=== PATIENT | male | born 1945 | race Caucasian/White ===

== ENCOUNTER → 2018-07-16 | Outpatient (CLI) | payer OTHER ==
[~2018-07-16] VITALS: Ht 170.2 cm; Wt 61.2 kg
[~2018-07-16] MED LIST: ACIPHEX 20 MG T20 MG PO; HYDROCODON-ACE1 EAC7 PO; IBUPROFEN 400400 M1 PO; NOHOMEMEDICATIONS
--- NOTE | ~2018-07-16 | PATH ---
[facility] [place] [address] [place] [address] PATHOLOGY RPT PROCEDURE Name: ADONAY PINA Room #: REG SHIV M.R.#: [id number] Admission: 07/16/18 Date of : 49 Discharge: Report #: [id number] Path Case #: [id number] [facility] Accession Number: [id number] . 01 Material submitted: . PART A: BX DUODENUM PART B: BX ANTRUM PART C: BX DISTAL ESOPHAGUS . 01 Clinical history: . Abd pain Hiatal hernia, mild esophagitis, gastritis A: Rule out celiac B: Rule out H. pylori C: Rule out Resendez's . 02 Diagnosis: A. Small bowel mucosa, duodenum, rule out celiac, endoscopic biopsy: - Occasional dilated lacteal/lymphatic; non-specific change. - Negative for villous blunting or increase in intraepithelial lymphocytes. . B. Gastric mucosa, antrum, endoscopic biopsy: - Mild chronic inflammation as well as features of reactive gastropathy. - Negative for intestinal metaplasia or atrophy. - Negative for Helicobacter pylori (properly controlled immunohistochemical stain performed). . C. Gastric fundic-type mucosa as well as focal squamous mucosa, distal esophagus rule out Resendez's, endoscopic biopsy: - Focal specialized columnar epithelium, compatible with Resendez's metaplasia. - Negative for dysplasia. - Mild chronic inflammation with features of mild esophagitis. LBQ/07/19/2018 . 02 Comment: The above diagnosis of Resendez's esophagus is made due to presence of intestinal metaplasia and with the assumption that the biopsies were obtained from the columnar mucosa in the distal esophagus located at least 1 cm proximal to the top of the gastric folds as per the 2016 ACG guidelines. (IUV/db; 07/19/18) . 02 Electronically signed: . Dacia Forbes MD, Pathologist NPI- [id number] [place] [address] PATHOLOGY RPT PROCEDURE Name: ADONAY PINA Room #: REG CLI Jhonatan#: [id number] Admission: 07/16/18 Date of : 49 Discharge: Report #: [id number] Path Case #: [id number] . 01 Gross description: . A. The specimen is received in formalin, labeled "Adonay Pina, BX duodenum" and consists of 2 fragments of soft merino tissue measuring 0.4 x 0.2 x 0.1 cm and 0.3 x 0.2 x 0.1 cm. They are entirely submitted in A1. . B. The specimen is received in formalin, labeled "Adonay Pina, BX antrum" and consists of 2 fragments of soft pink-merino tissue measuring 0.3 x 0.3 x 0.1 cm and 0.4 x 0.2 x 0.1 cm. They are entirely submitted in B1. . C. The specimen is received in formalin, labeled "Adonay Pina, BX distal esophagus" and consists of 3 fragments of soft merino tissue measuring between 0.3 x 0.2 x 0.1 cm and 0.2 x 0.2 x 0.1 cm. They are entirely submitted in C1. (SDY; 07/16/2018) SYU/SYU . 02 Pathologist provided ICD-10: K29.50, K31.9, K22.70, K20.9 . 02 CPT . 266909, 702528, 115697, [id number] Specimen Comment: A courtesy copy of this report has been sent to Specimen Comment: [phone], . Specimen Comment: Report sent to Dr.MARTIN DR BOYER Performed at: [address] [facility], [place], [place] [id number] MD Benjie Harrell MD Phone: [phone] Performed at: [address] [id number] MD Dacia Forbes MD Phone: [phone]
== END | disposition home or self-care (01) ==
LOC: GI 07:46
DX: K29.50 Unspecified chronic gastritis without bleeding (principal); K31.9 Disease of stomach and duodenum, unspecified; K20.9 Esophagitis, unspecified; K22.70 Barrett's esophagus without dysplasia; K44.9 Diaphragmatic hernia without obstruction or gangrene; K21.9 Gastro-esophageal reflux disease without esophagitis; Z98.0 Intestinal bypass and anastomosis status; Z87.891 Personal history of nicotine dependence
CPT/HCPCS: 62110; 62900